=== PATIENT | female | born 1985 | race Caucasian/White ===

== ENCOUNTER 2017-03-30 16:32 | Outpatient (CLI) | payer OTHER ==
[~2017-03-30] VITALS: Ht 162.6 cm; Wt 59.5 kg
[2017-03-30 17:12] VITALS: BP 111/64; PULSE 82; RESP 19; Ht 162.6 cm; Wt 59.5 kg
[2017-03-30] MEDS ORDERED: PRENAT PO (17:13)
--- NOTE | 2017-03-30 17:34 | RADRPT ---
PROCEDURE: OB ultrasound for biophysical profile CLINICAL INDICATION: Leaking fluid TECHNIQUE: Multiple sonographic images of the pelvis were obtained. Transabdominal views of the g ravid uterus are available for review. The images were reviewed on a PACS workstation. COMPARISON: None FINDINGS: breathing movement = 2/2 tone = 2/2 motion = 2/2 LOREE = 2/2 LOREE = 12.0 cm Single live intrauterine with cardiac activity of 150 bpm. position is cephal ic. The placenta is right lateral. IMPRESSION: 1. Single live intrauterine gestation. 2. Biophysical profile = 8/8. 3. LOREE = 12.0 cm. RPTAT: HH .Deborah Suarez MD, MD Date Time Electronically viewed and signed by .Deborah Suarez MD, on 03/30/2017 17:33 .G/
--- NOTE | 2017-03-30 18:52 | TRIAGE ---
OB Triage Datetime Report Generated by CPN: 03/30/2017 18:52 Datetime: 03/30/2017 18:33 Stage of : OB Triage Maternal Assessment Level of Consciousness: Fully Conscious DTR's/Clonus: DTRs 1+ Headache: Denies Breath Sounds, Left: Clear and Equal Breath Sounds, Right: Clear and Equal RUQ Epigastric Pain: Denies Labor Evaluation Frequency: NONE Monitor Mode: External Resting Tone Olivia Lopez De Gutierrez: Relaxed Heart Rate FHR Baseline Rate: 135 Monitor Mode: External US Variability: Moderate 6-25 bpm Accelerations: 15X15 Decelerations: None Category: Category I Pain Assessment Pain Presence: None/Denies Pain Type: N/A Datetime: 03/30/2017 18:00 Stage of : OB Triage Maternal Assessment Level of Consciousness: Fully Conscious DTR's/Clonus: DTRs 1+ Headache: Denies Breath Sounds, Left: Clear and Equal Breath Sounds, Right: Clear and Equal RUQ Epigastric Pain: Denies Labor Evaluation Frequency: IRREGULAR Monitor Mode: External Duration (sec)2399: 40-60 Quality: Mild Resting Tone Olivia Lopez De Gutierrez: Relaxed Heart Rate FHR Baseline Rate: 135 Monitor Mode: External US Variability: Moderate 6-25 bpm Accelerations: 15X15 Decelerations: None Category: Category I Pain Assessment Pain Presence: None/Denies Pain Type: N/A Datetime: 03/30/2017 17:23 Maternal Assessment Level of Consciousness: Fully Conscious DTR's/Clonus: DTRs 1+ Headache: Denies Blurred Vision: No Breath Sounds, Left: Clear and Equal Breath Sounds, Right: Clear and Equal RUQ Epigastric Pain: Denies Facial Edema: None Labor Evaluation Frequency: NONE Monitor Mode: External Resting Tone Olivia Lopez De Gutierrez: Relaxed Heart Rate FHR Baseline Rate: 140 Monitor Mode: External US Variability: Moderate 6-25 bpm Accelerations: 15X15 Decelerations: None Category: Category I Pain Assessment Pain Presence: None/Denies Pain Type: N/A Datetime: 03/30/2017 17:16 EGA: 36.5 Datetime: 03/30/2017 16:45 Stage of : OB Triage Datetime: 03/30/2017 16:23 Time of Arrival: 03/30/2017 16:23 Arrived By: Ambulatory Arrived From: Home Chief Complaint: PT CAME IN C/O LEAKING FOR 2 WEEKS AND STATED THAT SHA HAS SEEING A QUAUTER SIZE OF FLUID IN HER UNDERWARE. DENIES ANY OTHER PROBLEM Movement: Present Contractions: Denies/Absent Rupture of Membranes: Denies Vaginal Bleeding: None Vaginal Discharge: Present Recent Sexual Intercouse: Denies Abdominal Trauma: Not Applicable Patient Complaints: Other Additional Patient Complaints: NONE Time Provider Notified: 03/30/2017 17:30 Provider Notified: BETSEY Initial Plan: ROM PLUS, BPP, LOREE, VE
--- NOTE | 2017-04-09 22:50 | QN ---
Documentation Comment R/o prom JOE LEGGETT MD April 09, 2017 22:50
== END 2017-03-30 18:40 | disposition home or self-care (01) ==
LOC: OBT 16:32 → L-D 16:33 → OBT 18:40
PROVIDERS: ATTEND Obstetrics & Gynecology
DX: O26.893 Other specified pregnancy related conditions, third trimester (principal); Z3A.36 36 weeks gestation of pregnancy
CPT/HCPCS: 76818; 84112; Z7500; G0463

== ENCOUNTER 2017-04-05 04:55 | Inpatient (IN) | payer OTHER ==
[~2017-04-05] VITALS: Ht 162.6 cm; Wt 60.1 kg
[~2017-04-05 04:55] MED LIST: PRENAT PO
[2017-04-05 05:02] VITALS: BP 114/73; PULSE 61; RESP 20
[2017-04-05] MEDS ORDERED: FERR134T PO (05:15)
[2017-04-05] MEDS ORDERED: TERBUTALINE 1 ML ONE (05:44)
[2017-04-05] MEDS: LACTATED RINGER'S 1,000 ML IV SCH ×3 (05:47→22:10)
--- NOTE | 2017-04-05 05:55 | TRIAGE ---
OB Triage Datetime Report Generated by CPN: 04/05/2017 05:54 Datetime: 04/05/2017 05:53 Assessment Type: Admission Assessment Pain Assessment Pain Scale: 10 Pain Presence: Intermittent Pain Type: Contraction Datetime: 04/05/2017 05:30 Stage of : OB Triage Datetime: 04/05/2017 05:29 Stage of : OB Triage Labor Evaluation Frequency: 4-5 Monitor Mode: External Duration (sec)2399: 60-90 Quality: Moderate Pattern: Normal: <= 5 Contractions in 10 Minutes Resting Tone Singac: Relaxed Heart Rate FHR Baseline Rate: 140 Monitor Mode: External US FHR Baseline Changes: No Baseline Change Variability: Moderate 6-25 bpm Accelerations: 15X15 Decelerations: Late Category: Category II Pain Assessment Pain Scale: 10 Pain Presence: Intermittent Pain Type: Contraction Pain Location: Abdomen Vaginal Exam Dilatation (cms): 1.0 Effacement (%): 90 Station: -2 Exam By: ELopez Membrane Status: Intact Amniotic Fluid Amount: None Vaginal Bleeding: Small Cervix, Consistency: Soft Cervix, Position: Midposition Presentation 'A': Cephalic Datetime: 04/05/2017 05:08 Stage of : OB Triage Maternal Assessment Level of Consciousness: Fully Conscious Headache: Denies Blurred Vision: No Nausea/Vomiting: Denies RUQ Epigastric Pain: Denies Facial Edema: None Labor Evaluation Frequency: placed Monitor Mode: External Resting Tone Singac: Relaxed Monitor Mode: External US Comments: FHT 145 Pain Assessment Pain Scale: 10 Pain Presence: Intermittent Pain Type: Contraction Pain Location: Abdomen Datetime: 04/05/2017 04:59 Time of Arrival: 04/05/2017 04:53 EGA: 37.4 Arrived By: Wheelchair Arrived From: Home Chief Complaint: [id number] w/ hx c/s x2 c/o ucs Movement: Present Contractions: Regular Time Contractions Began: 04/04/2017 16:00 Contractions: Q5 Rupture of Membranes: Denies Vaginal Bleeding: None Vaginal Discharge: Denies Recent Sexual Intercouse: Denies Abdominal Trauma: Not Applicable Patient Complaints: Contractions Initial Plan: EFM, SVE Datetime: 03/30/2017 17:16 EGA: 36.5
[2017-04-05] MEDS ORDERED: METHYLERGONOVINE 0.2 MG INJ IM PRN ×2 (06:00→13:00)
[2017-04-05] MEDS ORDERED: OXYTOCIN 30 UNITS/LR 500 ML IV PRN ×2 (06:00→13:00)
[2017-04-05] MEDS ORDERED: CARBOPROST 250 MCG INJ IM PRN ×2 (06:00→13:00)
[2017-04-05] MEDS ORDERED: MISOPROSTOL 200 MCG TAB PR PRN ×2 (06:00→13:00)
[2017-04-05] MEDS ORDERED: OXYTOCIN 30 UNITS/LR 500 ML IV SCH (06:00)
[2017-04-05] MEDS ORDERED: TERBUTALINE 1 MG/ML INJ SC ONE ×2 (06:00→06:30)
[2017-04-05] MEDS ORDERED: CEFAZOLIN 2 GM/50 ML (PMX) 50 ML IV SCH (06:00)
[2017-04-05 06:09] LABS: ADD SCAN DIFF NO
[2017-04-05 06:13] LABS: BASOPHILS % 0.2 % (0.0-2.0); EOSINOPHILS # 0.1 10^3/ul (0.0-0.5); EOSINOPHILS % 0.6 % (0.0-7.0); HEMATOCRIT 35.4 % (37.0-47.0); HEMOGLOBIN 11.9 g/dl (12.0-16.0); LYMPHOCYTES # 2.9 10^3/ul (0.8-2.9); LYMPHOCYTES % 27.1 % (15.0-51.0); MEAN CORPUSCULAR HEMOGLOBIN 30.7 pg (29.0-33.0); MEAN CORPUSCULAR HGB CONC 33.6 g/dl (32.0-37.0); MEAN CORPUSCULAR VOLUME 91.5 fl (82.0-101.0); MEAN PLATELET VOLUME 12.9 fl (7.4-10.4); MONOCYTE # 0.5 10^3/ul (0.3-0.9); MONOCYTES % 4.7 % (0.0-11.0); NEUTROPHIL # 7.1 10^3/ul (1.6-7.5); NEUTROPHILS % 66.9 % (39.0-77.0); PLATELET COUNT 158 10^3/UL (140-415); RED BLOOD COUNT 3.87 10^6/ul (4.20-5.40); RED CELL DISTRIBUTION WIDTH 14.2 % (11.5-14.5); WHITE BLOOD COUNT 10.7 10^3/ul (4.8-10.8)
[2017-04-05 06:31] LABS: INR 0.82; PROTIME 11.3 Sec (12.2-14.2); PT RATIO 0.9
[2017-04-05 06:32] LABS: PARTIAL THROMBOPLASTIN TIME 30.5 Sec (25.0-35.0)
--- NOTE | 2017-04-05 06:48 | HP ---
Date/Time of Note Date/Time of Note DATE: 04/05/17 TIME: 06:42 OB - History Hx of Present Free Text/Dictation Pt is a 31yo at 37+4 with 2 prior C/S presenting with painful UCs. Pt reports normal FM, denies LOF or VB. care has been uncomplicated. Pt desires BTL at time of repeat C/S. Estimated Due Date: April 22, 2017 : 3 Para: 2 Care: Good Care Ultrasounds: Normal mid trimester US Obstetrical Complications: None Medical Complications: Other (Anemia, now resolved) Past Family/Social History * Past Medical, Surgical, Family and Obstetric Histories reviewed from chart. Blood Type: O+ Rubella: immune RPR/VDRL: Negative GBS Status: Unknown HBsAG: Negative OB Admission Exam Vital Signs Vital Signs Vital Signs Date Time Temp Pulse Resp B/P Pulse Ox O2 Delivery O2 Flow Rate FiO2 04/05/17 05:02 98.2 61 20 114/73 Room Air Physical Exam HEENT: WNL Heart: Rhythm Normal Lungs: Clear Abdomen: WNL Extremities: Normal Cervical Dilatation: 1cm Effacement: Other (90%) Station: -3 Membranes: Intact Heart Rate: 130's Accelerations: Accelerations Present Decelerations: No Decelerations Varibility: Moderate Contractions on Admission: < 5 Minutes Apart (initially q3-4 min) Last 72 hours Lab Results CBC & BMP 04/05/17 05:55 OB Assessment/Plan Other Assessment: Early Labor Hx of C/S x2 Reactive NST Other plan: Plan to proceed with repeat C/S in the setting of early labor at term. Pt desires repeat C/S. The risks of C/S discussed include but are not limited to pain, infection, damage to nearby organs, structures or injury to baby, bleeding possibly requiring transfusion of blood products or hysterectomy. Pt made aware that should injury to organs or structures be noted during the procedure, they will be repaired. However, there is a possibility that injuries may be sustained at the time of the C/S and go unrecognized. Thus additional surgeries may be necessary to repair damage during the C/S. The pt had an opportunity to have her questions answered. Written consent for Repeat C/S and transfusion of blood products were signed. Pt consented for tubal ligation and is aware of risks of this procedure as well. RN and Anesthesia teams made aware of plan. TERRY CHEN MD April 05, 2017 06:48
[2017-04-05] MEDS ORDERED: OXYTOCIN 30 UNITS/LR 500 ML BAG IV ONE (07:00)
[2017-04-05] MEDS ORDERED: PHENYLephrine (100 MCG/ML) 5ML SYG ONE ×2 (08:12→08:52)
[2017-04-05] MEDS ORDERED: ONDANSETRON 4 MG INJ ONE (08:12)
[2017-04-05] MEDS ORDERED: OXYTOCIN 10 UNIT INJ ONE (08:12)
[2017-04-05] MEDS ORDERED: morphine SULFATE/PF (10 MG/10 ML) INJ ONE (08:12)
--- NOTE | 2017-04-05 08:18 | HP ---
Date/Time of Note Date/Time of Note DATE: 04/05/17 TIME: 08:10 OB - History Hx of Present Free Text/Dictation 31 years old female 02 0 2 admitted to [facility] at 37 weeks and 4 days with a history of 2 previous section in active labor patient was originally scheduled for the 39 weeks but came to the hospital due to labor contraction being prepared to undergo repeat C- section patient had requested and signed the consent for tubal ligation at the time of her section. This patient has been under the care of the [facility] course was not complicated with gestational diabetes -induced hypertension only notable entry in her record is anemia. Chief Complaint: Previous in labor Estimated Due Date: April 22, 2017 : 5 Para: 2 Spontaneous : 2 Care: Good Care Ultrasounds: Normal mid trimester US Obstetrical Complications: None Past Family/Social History * Past Medical, Surgical, Family and Obstetric Histories reviewed from chart. Rubella: immune RPR/VDRL: Negative GBS Status: Negative OB Admission Exam Vital Signs Vital Signs Vital Signs Date Time Temp Pulse Resp B/P Pulse Ox O2 Delivery O2 Flow Rate FiO2 04/05/17 05:02 98.2 61 20 114/73 Room Air Physical Exam HEENT: WNL Heart: Rhythm Normal Lungs: Clear, Equal Abdomen: WNL Extremities: Normal Reflexes: Normal Cervical Dilatation: 1cm Effacement: 25% Station: -2 Membranes: Intact Heart Rate: 130's Accelerations: Accelerations Present Decelerations: No Decelerations Varibility: Moderate Contractions on Admission: < 5 Minutes Apart Intensity: Moderate Last 72 hours Lab Results CBC & BMP 04/05/17 05:55 OB Assessment/Plan Plan: Section, Other (History of 2 previous section in labor had signed consent and requested bilateral tubal ligation at the time of section) Other plan: Repeat bilateral tubal ligation JOE LEGGETT MD April 05, 2017 08:18
[2017-04-05] MEDS ORDERED: FENTAnyl 50 MCG/ML VIAL ONE (08:51)
[2017-04-05] MEDS ORDERED: morphine 2 MG INJ IV PRN (10:00)
[2017-04-05] MEDS ORDERED: NALOXONE (0.4 MG/ML) INJ IV PRN (10:00)
[2017-04-05] MEDS ORDERED: DIPHENHYDRAMINE 50 MG INJ IV PRN (10:00)
[2017-04-05] MEDS ORDERED: ONDANSETRON 4 MG INJ IV PRN (10:00)
--- NOTE | 2017-04-05 10:39 | OPR ---
DATE OF OPERATION: 04/05/2017 PREOPERATIVE DIAGNOSES: 1. Intrauterine at 37 weeks and 4 days with history of 2 previous sections, in a ctive labor. 2. Request for bilateral tubal ligation at the time of section. POSTOPERATIVE DIAGNOSES: 1. Intrauterine at 37 weeks and 4 days with history of 2 previous sections, in a ctive labor. 2. Request for bilateral tubal ligation at the time of section. OPERATION PERFORMED: Repeat transverse low cervical section, bilateral tubal ligation. SURGEON: Joe Grijalva MD TUG HAND: Brian Feliz MD ANESTHESIA: Spinal. ANESTHESIOLOGIST: Dr. Alexandre FINDINGS: Live baby boy with the 9 and 9. Baby weighed 6 pounds 5 ounces. DETAILS OF THE PROCEDURE: Under satisfactory spinal anesthesia, the patient was prepped and draped and placed in supine position, tilted to the left. Pfannenstiel incision was made, incision carried through the subcutaneous tissue. Bleeders brought under control with electrocautery. Fascia incis ed to the length of the incision. Rectus muscle divided in midline. Peritoneum exposed, entered th rough a transverse incision. Exploration of abdomen: Gravid uterus, extremely thinned out lower seg ment of the uterus, normal appearing tubes and ovaries. Bladder flap was developed. Transverse inc ision was made in the lower segment of the uterus. Amniotic sac ruptured. Clear amniotic fluid not ed. Live baby boy was delivered from unengaged vertex with a nuchal cord x1. Nasal oropharyngeal s uction was performed and baby handed to the team for immediate attention. The patient rece ived 20 units of Pitocin. Placenta delivered manually intact. Uterine cavity cleaned with wet spon ge and drainage established. Uterus closed in 2 layers using Monocryl #1 in continuous fashion. Pe ritoneal cavity irrigated with warm saline. Sponge, needle, and instrument reported to be correct. Bilateral tubal ligation performed by identifying the ampullar and fimbria section of the right fall opian tube. Suture material used: #0 plain catgut, reinforced with the same suture material. The f imbria and part of the ampullar section of the tube was excised. The cut end of the tube was cauter ized and the specimen submitted to pathology. The same procedure performed for the opposite side. A second sponge, needle, and instrument reported to be correct. Abdominal peritoneum closed with 2- 0 chromic catgut continuously. Rectus muscle approximated with few interrupted 2-0 chromic catgut. Fascia closed with #1 PDS in a continuous fashion. Subcutaneous tissue approximated with interrupt ed 2-0 chromic catgut and the skin closed with juanita. Estimated blood loss 600 mL. Urine bag con tained 200 mL of clear urine. Patient tolerated procedure well and was transferred to recovery room in a good condition. Dictated By: JOE BOWLES/IGOR Conf#: [id number] DID#: [id number]
[2017-04-05] MEDS: KETOROLAC 30 MG INJ IV PRN (11:23)
[2017-04-05 12:30] VITALS: BP 112/62; PULSE 64; RESP 18
[2017-04-05] MEDS ORDERED: LANOLIN 7 GM TUBE TOP PRN (13:00)
[2017-04-05] MEDS ORDERED: OXYCODONE/ACETAMINOPHEN (5/325) TAB PO PRN ×2 (13:00)
[2017-04-05] MEDS ORDERED: CEFAZOLIN 1 GM/50 ML (PMX) 50 ML IVPB SCH (13:00)
[2017-04-05] MEDS ORDERED: ACETAMINOPHEN/CODEINE #3 TAB PO PRN ×2 (13:00)
[2017-04-05] MEDS: OXYTOCIN 30 UNITS/LR 500 ML IV SCH ×3 (13:32→20:32)
[2017-04-05 16:08] VITALS: PULSE 62; RESP 18
[2017-04-05 20:00] VITALS: BP 124/64; PULSE 60; RESP 18
[2017-04-05] MEDS: SENNA/DOCUSATE NA (8.6MG/50MG) TAB PO SCH (21:00)
[2017-04-05 23:30] VITALS: BP 107/64; PULSE 65; RESP 18
[2017-04-06 03:58] VITALS: BP 108/67; PULSE 67; RESP 18
[2017-04-06] MEDS: LACTATED RINGER'S 1,000 ML IV SCH (05:30)
[2017-04-06 08:15] VITALS: BP 103/57; PULSE 69; RESP 19
[2017-04-06 08:19] LABS: ADD SCAN DIFF NO
[2017-04-06 08:26] LABS: BASOPHILS % 0.1 % (0.0-2.0); EOSINOPHILS % 0.2 % (0.0-7.0); HEMOGLOBIN 9.1 g/dl (12.0-16.0); LYMPHOCYTES # 1.8 10^3/ul (0.8-2.9); LYMPHOCYTES % 19.7 % (15.0-51.0); MEAN CORPUSCULAR HEMOGLOBIN 29.9 pg (29.0-33.0); MEAN CORPUSCULAR HGB CONC 32.5 g/dl (32.0-37.0); MEAN CORPUSCULAR VOLUME 92.1 fl (82.0-101.0); MEAN PLATELET VOLUME 12.7 fl (7.4-10.4); MONOCYTE # 0.5 10^3/ul (0.3-0.9); MONOCYTES % 5.7 % (0.0-11.0); NEUTROPHIL # 6.8 10^3/ul (1.6-7.5); PLATELET COUNT 125 10^3/UL (140-415); RED BLOOD COUNT 3.04 10^6/ul (4.20-5.40); RED CELL DISTRIBUTION WIDTH 14.6 % (11.5-14.5); WHITE BLOOD COUNT 9.2 10^3/ul (4.8-10.8)
[2017-04-06] MEDS: KETOROLAC 30 MG INJ IV PRN (08:29)
[2017-04-06] MEDS: SENNA/DOCUSATE NA (8.6MG/50MG) TAB PO SCH ×2 (08:29→21:03)
[2017-04-06] MEDS: IBUPROFEN 600 MG TAB PO SCH ×3 (12:00→23:33)
[2017-04-06 15:30] VITALS: BP 102/63; PULSE 92; RESP 18
--- NOTE | 2017-04-06 16:44 | PN ---
Date/Time of Note Date/Time of Note DATE: 04/06/17 TIME: 16:43 OB Subjective Subjective Subjective Post day Afebrile, VSs stable abdomen soft lochia moderate bowel sounds present able to pass flatus ambulation recommended extremities normal. Laboratory Tests Test 04/06/17 07:36 White Blood Count 9.210^3/ul Red Blood Count 3.0410^6/ul Hemoglobin 9.1g/dl Hematocrit 28.0% Mean Corpuscular Volume 92.1fl Mean Corpuscular Hemoglobin 29.9pg Mean Corpuscular Hemoglobin Concent 32.5g/dl Red Cell Distribution Width 14.6% Platelet Count 65982^3/UL Mean Platelet Volume 12.7fl Neutrophils % 74.0% Lymphocytes % 19.7% Monocytes % 5.7% Eosinophils % 0.2% Basophils % 0.1% Nucleated Red Blood Cells % 0.0/100WBC Neutrophils # 6.810^3/ul Lymphocytes # 1.810^3/ul Monocytes # 0.510^3/ul Eosinophils # 0.010^3/ul Basophils # 0.010^3/ul Nucleated Red Blood Cells # 0.010^3/ul Current Medications Medications (Trade) Dose Ordered Sig/Angel Route PRN Reason Start Time Stop Time Status Last Admin Dose Admin Lactated Ringer's 1,000 ml @ 125 mls/hr Q8H IV 04/05/17 05:33 04/05/17 12:36 DC 04/05/17 06:48 Cefazolin Sodium/ Dextrose 50 ml @ 100 mls/hr ONCE IV 04/05/17 06:00 04/05/17 12:36 DC Oxytocin/Lactated Ringer's 500 ml @ 125 mls/hr ONCE IV 04/05/17 06:00 04/05/17 12:36 DC 04/05/17 10:09 Oxytocin/Lactated Ringer's 500 ml @ 0 mls/hr ONCE PRN IV For Hemorrhage Management 04/05/17 06:00 04/05/17 12:36 DC Methylergonovine Maleate (Methergine) 0.2 mg ONCE PRN IM VAGINAL BLEEDING 04/05/17 06:00 04/05/17 12:36 DC Carboprost Tromethamine (Hemabate) 250 mcg ONCE PRN IM VAGINAL BLEEDING 04/05/17 06:00 04/05/17 12:36 DC Misoprostol (Cytotec) 1,000 mcg ONCE PRN GA VAGINAL BLEEDING 04/05/17 06:00 04/05/17 12:36 DC Terbutaline Sulfate 0.25 mg 0.25 mg ONCE ONCE SC 04/05/17 06:00 04/05/17 06:01 DC 04/05/17 05:46 Terbutaline Sulfate (Brethine) 1 ml @ ud STK-MED ONCE .ROUTE 04/05/17 05:44 04/05/17 05:45 DC Terbutaline Sulfate (Brethine) 0.25 mg ONCE ONCE SC 04/05/17 06:30 04/05/17 06:31 DC 04/05/17 06:32 Morphine Sulfate (Duramorph) 10 mg STK-MED ONCE .ROUTE 04/05/17 08:12 04/05/17 08:13 DC Ondansetron HCl (Zofran Inj) 4 mg STK-MED ONCE .ROUTE 04/05/17 08:12 04/05/17 08:13 DC Phenylephrine HCl (Cuong-Synephrine Inj Syg) 500 mcg STK-MED ONCE .ROUTE 04/05/17 08:12 04/05/17 08:13 DC Oxytocin (Oxytocin) 10 units STK-MED ONCE .ROUTE 04/05/17 08:12 04/05/17 08:13 DC Fentanyl (Sublimaze) 100 mcg STK-MED ONCE .ROUTE 04/05/17 08:51 04/05/17 08:52 DC Phenylephrine HCl (Cuong-Synephrine Inj Syg) 500 mcg STK-MED ONCE .ROUTE 04/05/17 08:52 04/05/17 08:53 DC Naloxone HCl (Narcan) 0.1 mg Q2M PRN IV FOR RESP RATE 8 OR LESS 04/05/17 10:00 04/06/17 08:00 DC Ketorolac Tromethamine (Toradol) 30 mg Q6H PRN IV PAIN 04/05/17 10:00 04/06/17 09:00 DC 04/06/17 08:29 Morphine Sulfate (morphine) 2 mg Q3H PRN IV PAIN LEVEL 1-5 04/05/17 10:00 04/06/17 08:00 DC Diphenhydramine HCl (Benadryl) 25 mg Q6H PRN IV ITCHING 04/05/17 10:00 04/06/17 08:00 DC 04/05/17 23:20 Ondansetron HCl (Zofran Inj) 4 mg Q6H PRN IV NAUSEA AND/OR VOMITING 04/05/17 10:00 04/06/17 08:00 DC Miscellaneous Information (* Miscellaneous Pharmacy Order) Duramorph: 0.2 mg Spi... GIVEN XX 04/05/17 10:00 Acetaminophen/ Codeine Phosphate (Tylenol No.3) 1 tab Q4H PRN PO PAIN LEVEL 4-6 04/05/17 13:00 Acetaminophen/ Codeine Phosphate (Tylenol No.3) 2 tab Q4H PRN PO PAIN LEVEL 7-10 04/05/17 13:00 Oxycodone/ Acetaminophen (Percocet (5/ 325)) 1 tab Q4H PRN PO PAIN LEVEL 4-6 04/05/17 13:00 Oxycodone/ Acetaminophen (Percocet (5/ 325)) 2 tab Q4H PRN PO PAIN LEVEL 7-10 04/05/17 13:00 Ibuprofen (Motrin) 600 mg Q6 PO 04/06/17 12:00 Simethicone (Mylicon) 160 mg Q8H PRN PO DISTENSION/GAS/BLOATING 04/05/17 13:00 04/06/17 08:29 Senna/Docusate Sodium (Senokot-S) 1 tab BID PO 04/05/17 21:00 04/06/17 08:29 Lanolin ([id number]-J-Zjcwxa) 1 applic BEDSIDE MEDICATION PRN TOP BEDSIDE FOR HELLEN TO NIPPLES 04/05/17 13:00 04/05/17 23:20 Diphtheria/ Tetanus/Acell Pertussis 0.5 ml 0.5 ml ONCE ONCE IM* 04/08/17 09:00 04/08/17 09:01 Oxytocin/Lactated Ringer's 500 ml @ 0 mls/hr ONCE PRN IV For Hemorrhage Management 04/05/17 13:00 Methylergonovine Maleate (Methergine) 0.2 mg ONCE PRN IM VAGINAL BLEEDING 04/05/17 13:00 Carboprost Tromethamine (Hemabate) 250 mcg ONCE PRN IM VAGINAL BLEEDING 04/05/17 13:00 Misoprostol 1000 mcg 1,000 mcg ONCE PRN GA VAGINAL BLEEDING 04/05/17 13:00 Cefazolin Sodium 50 ml @ 100 mls/hr ONCE IVPB 04/05/17 13:00 04/05/17 13:29 DC 04/05/17 13:33 Oxytocin/Lactated Ringer's 500 ml @ 125 mls/hr Q4H IV 04/05/17 12:32 04/05/17 22:13 DC 04/05/17 18:12 Lactated Ringer's (Lr) 1,000 ml @ 125 mls/hr Q8H IV 04/05/17 22:00 04/06/17 09:00 DC 04/06/17 05:30 JOE LEGGETT MD April 06, 2017 16:44
[2017-04-06 20:00] VITALS: BP 100/80; PULSE 100; RESP 18
[2017-04-07 04:00] VITALS: BP 103/55; PULSE 68; RESP 18
[2017-04-07] MEDS: IBUPROFEN 600 MG TAB PO SCH ×5 (06:05→23:54)
[2017-04-07 08:00] VITALS: BP 92/62; PULSE 74; RESP 18
[2017-04-07] MEDS: SENNA/DOCUSATE NA (8.6MG/50MG) TAB PO SCH ×2 (08:28→21:58)
--- NOTE | 2017-04-07 09:47 | PN ---
Date/Time of Note Date/Time of Note DATE: 04/07/17 TIME: 09:46 OB Subjective Subjective Subjective Post day 2 Afebrile VS stable abdomen soft incision good bowel sounds able to pass flatus no BM ambulation encouraged JOE LEGGETT MD April 07, 2017 09:47
[2017-04-07] MEDS ORDERED: NA PHOSPHATE/BIPHOS 133 ML ENEMA PR ONE (10:00)
[2017-04-07 16:20] VITALS: BP 106/75; PULSE 82; RESP 17
[2017-04-07 20:00] VITALS: BP 90/63; PULSE 77; RESP 19
[2017-04-08 03:50] VITALS: BP 107/61; PULSE 63; RESP 17
[2017-04-08] MEDS: IBUPROFEN 600 MG TAB PO SCH ×2 (05:35→12:05)
[2017-04-08 08:40] VITALS: BP 110/66; PULSE 65; RESP 18
[2017-04-08] MEDS ORDERED: DIPHTH/TET/ACEL PERTUSS (ADULT) 0.5 ML VIAL IM* ONE (09:00)
[2017-04-08] MEDS: SENNA/DOCUSATE NA (8.6MG/50MG) TAB PO SCH (10:04)
--- NOTE | 2017-04-08 10:20 | PD.PPDC ---
SECURITY SITE SUPERVISOR Discharge Instruction Condition Patient Condition: Good Diet Diet: Resume Regular Diet Activity/Restrictions Activity: Normal Activity May Shower Wound/Drain Care Instructions Wound/Drain Care Instructions: Remove Steri Strips in 1 week Follow-up Follow-up with Physician: 4, Day/Days Provider Information: Appointment clinic in 5 days to discontinue juanita Return to clinic for DIRECTOR OCCUPATIONAL Instructions: Fever greater than 101 Worsening abdominal pain Excessive Vaginal Bleeding More than 2 pads per hour Unable to tolerate diet Surgical Instructions: Incisional Drainage Incisional Redness JOE LEGGETT MD April 08, 2017 10:20
--- NOTE | 2017-04-08 10:23 | DS ---
Date/Time of Note Date/Time of Note DATE: 04/08/17 TIME: 10:21 Discharge Summary Admission/Discharge Info Admit Date/Time April 05, 2017 at 05:35 Discharge Date/Time April 08 at 1028 Final Diagnosis Post Patient Condition: Good Procedures Repeat bilateral tubal ligation Hx of Present Illness history of previous request for BTL Hospital Course Satisfactory uneventful Home Meds Reported Medications Ferrous Sulfate (Iron) 134 Mg Tablet, 134 MG PO DAILY, TAB 04/05/17 Discontinued Reported Medications Multivit/Min/Fol Ac/Iron/Pren* ( S*) 1 Tab Tab, 1 TAB PO DAILY, TAB 03/30/17 Primary Care Provider Jacinta Tom Time spent on discharge: > 30 minutes JOE LEGGETT MD April 08, 2017 10:23
== END 2017-04-08 17:42 | disposition home or self-care (01) | DRG 766 ==
LOC: OBT 04:55 → L-D 04:56 → OBT 05:34 → L-D 05:35 → PP1 12:23
PROVIDERS: ADMIT Obstetrics & Gynecology; ATTEND Obstetrics & Gynecology
PROC: 0UL70ZZ Occlusion of Bilateral Fallopian Tubes, Open Approach (ICD-10-PCS; 2017-04-05)
PROC: 10D00Z1 Extraction of Products of Conception, Low, Open Approach (ICD-10-PCS; principal; 2017-04-05 08:00)
DX: O34.211 Maternal care for low transverse scar from previous cesarean delivery (principal); O69.81X0 Labor and delivery complicated by cord around neck, without compression, not applicable or unspecified; Z3A.37 37 weeks gestation of pregnancy; Z30.2 Encounter for sterilization; Z37.0 Single live birth
CPT/HCPCS: 85025; 85610; 85730; 86592; 86850; 86900; 86901; 88302; 88307; 90715; 94760; 96372; 99464; G0463; J0690; J1200; J1885; J2274; J2370; J2405; J2590; J3010; J3105; J7120

== ENCOUNTER 2017-12-07 09:40 | Emergency (ER) | END 2017-12-07 12:43 | disposition home or self-care (01) ==

== ENCOUNTER 2019-03-17 13:08 | Emergency (ER) | payer MEDICAID, OTHER ==
[~2019-03-17] VITALS: Wt 52.3 kg
[~2019-03-17 13:08] MED LIST changes: +FERR134T PO; +NITR-58 PO; +PHEN-538 PO; -PRENAT PO
[2019-03-17 13:44] VITALS: BP 113/56; PULSE 61; RESP 20
--- NOTE | 2019-03-17 17:40 | ERD ---
ER Documentation Chief Complaint Chief Complaint c/o headache with weakness today. Currently asymptomatic HPI 33-year-old female patient with no significant past medical history presents to ED complaining of headache and felt weak earlier today. States that she felt like she was about to faint. Reports that she felt nauseous but denies any vomiting. States that she was at the coffee shop, sat on the sofa and felt weak. He says she may have a history of anemia. Reports that she is currently on her menstruation. Denies any chest pain, shortness of breath, nausea, vomiting, diarrhea, neck stiffness. ROS All systems reviewed and are negative except as per history of present illness. Medications Home Meds Active Scripts Phenazopyridine Hcl* (Pyridium*) 200 Mg Tab, 200 MG PO TID PRN for URINARY PAIN, #10 TAB Prov:PRATIBHA BENSON PA-C 12/07/17 Nitrofurantoin Monohyd Macrocr* (Macrobid*) 100 Mg Capsr, 100 MG PO BID for 7 Days, CAP Prov:PRATIBHA BENSON PA-C 12/07/17 Reported Medications Ferrous Sulfate (Iron) 134 Mg Tablet, 134 MG PO DAILY, TAB 04/05/17 Allergies Allergies: Coded Allergies: No Known Allergies (Verified Allergy, Unknown, 04/05/17) PMhx/Soc Medical and Surgical Hx: pt denies Medical Hx, pt denies Surgical Hx Hx Alcohol Use: No Hx Substance Use: No FmHx Family History: No diabetes, No coronary disease Physical Exam Vitals Vital Signs Date Temp Pulse Resp B/P (MAP) Pulse Ox O2 O2 Flow FiO2 Time Delivery Rate 03/17/19 98.5 61 20 113/56 99 13:44 (75) Physical Exam Const: Sgr-twk-abydoumvs, well-nourished. In no acute distress. Head: Atraumatic, normocephalic. No hematoma. No shook sign. Eyes: Normal Conjunctiva without injection. No purulent discharge. PERRLA. EOMI ENT: Normal external ear. Ear canal without erythema. Tympanic membrane pearly nair without effusion or bulging. Nasal canal clear with normal turbinates. Moist oropharynx without tonsillar exudates. Non-erythematous pharynx. Uvula midline. No drooling. No trismus. Neck: No cervical midline tenderness. Full range of motion. No meningismus. No cervical lymphadenopathy. No JVD. Resp: Clear to auscultation bilaterally. No wheezing, rhonchi, rales, or cr ackles. No accessory muscle use. No retractions. Cardio: Regular rate and rhythm. No murmurs, rubs or gallops. Abd: Soft, non tender, non distended. Normal bowel sounds. No palpable masses. No rebound tenderness. No guarding. Negative McBurney's Point. Negative Gonzalez's Sign. Skin: Normal skin turgor. No petechiae or rashes Back: No midline tenderness. No CVA tenderness. Ext: No cyanosis, or edema. Distal pulses intact bilaterally. Neur: Awake and alert. Normal gait. Normal coordination. Cranial Nerves II- VII intact. Normal finger to nose. Muscle strength 5/5. Sensation intact. Psych: Normal Mood and Affect Results 24 hrs Laboratory Tests Test 03/17/19 15:52 03/17/19 15:55 POC Beta HCG, Qualitative NEGATIVE White Blood Count 14.3 10^3/ul Red Blood Count 4.44 10^6/ul Hemoglobin 13.3 g/dl Hematocrit 40.5 % Mean Corpuscular Volume 91.2 fl Mean Corpuscular Hemoglobin 30.0 pg Mean Corpuscular Hemoglobin Concent 32.8 g/dl Red Cell Distribution Width 12.7 % Platelet Count 258 10^3/UL Mean Platelet Volume 11.6 fl Immature Granulocytes % 0.400 % Neutrophils % 69.4 % Lymphocytes % 23.9 % Monocytes % 4.5 % Eosinophils % 1.5 % Basophils % 0.3 % Nucleated Red Blood Cells % 0.0 /100WBC Immature Granulocytes # 0.060 10^3/ul Neutrophils # 9.9 10^3/ul Lymphocytes # 3.4 10^3/ul Monocytes # 0.7 10^3/ul Eosinophils # 0.2 10^3/ul Basophils # 0.0 10^3/ul Nucleated Red Blood Cells # 0.0 10^3/ul Sodium Level 142 mmol/L Potassium Level 4.4 mmol/L Chloride Level 104 mmol/L Carbon Dioxide Level 28 mmol/L Anion Gap 10 Blood Urea Nitrogen 16 mg/dl Creatinine 0.57 mg/dl Est Glomerular Filtrat Rate mL/min > 60 mL/min Glucose Level 86 mg/dl Calcium Level 9.6 mg/dl Procedures/MDM 33-year-old female patient with no significant past medical history presents ED complaining of headache and weakness that started earlier today. Patient is afebrile and nontoxic-appearing. An EKG, CBC, BMP, urine was ordered to further evaluate patient. Urine negative. CBC: No e/o of systemic infection. No e/o anemia. BMP: No e/o severe acidosis, alkalosis, renal failure, diabetic ketoacidosis Urine: No leukocyte esterase, no nitrites, no hematuria. EKG reviewed and interpreted by Dr. Chavez Rate/Rhythm: [71 bpm, Normal Sinus Rhythm] No ectopy, no ST elevations, normal axis. QRS, ST, T-waves: [No changes consistent w/ acute ischemia] Impression: [No evidence of ischemia or arrhythmia] She has leukocytosis of 14.3 likely secondary to stress reaction. Low suspicion for acute myocardial infarction, pneumothorax, pneumonia, cardiac tamponade, Umfdx-Ajzqawpfk-Mjdpi Syndrome, Brugada Syndrome, pulmonary embolism, AAA, aortic dissection, thoracic aortic dissection, endocarditis, myocarditis, pericarditis, cocaine-related ischemia, Boerhaave's syndrome, cardiac dysrhythmias,meningitis, intracranial bleed, seizure, stroke, TIA or other emergent conditions. Diagnosis: Headache, Near syncope Follow up with primary care physician in 1-2 days. Instructed patient to return to the ED sooner for any worsening symptoms. Patient's questions were answered. Patient is hemodynamically stable. Patient understood and agreed with discharge plan. Patient discharged stable. Disclaimer: Inadvertent spelling and grammatical errors are likely due to EHR/dictation software use and do not reflect on the overall quality of patient care. Also, please note that the electronic time recorded on this note does not necessarily reflect the actual time of the patient encounter. Departure Diagnosis: Primary Impression: Headache Headache type: unspecified Headache chronicity pattern: unspecified pattern Intractability: not intractable Qualified Codes: R51 - Headache Additional Impression: Near syncope Condition: Stable Patient Instructions: What Is Syncope?, Self-Care for Headaches, Headache, Unspecified Referrals: COMMUNITY CLINICS YOU HAVE RECEIVED A MEDICAL SCREENING EXAM AND THE RESULTS INDICATE THAT YOU DO NOT HAVE A CONDITION THAT REQUIRES URGENT TREATMENT IN THE EMERGENCY DEPARTMENT. FURTHER EVALUATION AND TREATMENT OF YOUR CONDITION CAN WAIT UNTIL YOU ARE SEEN IN YOUR DOCTORS OFFICE WITHIN THE NEXT 1-2 DAYS. IT IS YOUR RESPONSIBILITY TO MAKE AN APPOINTMENT FOR FOLOW-UP CARE. IF YOU HAVE A PRIMARY DOCTOR --you should call your primary doctor and schedule an appointment IF YOU DO NOT HAVE A PRIMARY DOCTOR YOU CAN CALL OUR PHYSICIAN REFERRAL HOTLINE AT IF YOU CAN NOT AFFORD TO SEE A PHYSICIAN YOU CAN CHOSE FROM THE FOLLOWING [facility] [address] [facility] [facility] [facility] [address] [facility] [facility] [address] [facility] [address] [facility]. [facility] [address] [facility] [facility] [address] [facility]. [facility] YOU HAVE RECEIVED A MEDICAL SCREENING EXAM AND THE RESULTS INDICATE THAT YOU DO NOT HAVE A CONDITION THAT REQUIRES URGENT TREATMENT IN THE EMERGENCY DEPARTMENT. FURTHER EVALUATION AND TREATMENT OF YOUR CONDITION CAN WAIT UNTIL YOU ARE SEEN IN YOUR DOCTORS OFFICE WITHIN THE NEXT 1-2 DAYS. IT IS YOUR RESPONSIBILITY TO MAKE AN APPOINTMENT FOR FOLOW-UP CARE. IF YOU HAVE A PRIMARY DOCTOR --you should call your primary doctor and schedule and appointment IF YOU DO NOT HAVE A PRIMARY DOCTOR YOU CAN CALL OUR PHYSICIAN REFERRAL HOTLINE AT . IF YOU CAN NOT AFFORD TO SEE A PHYSICIAN YOU CAN CHOSE FROM THE FOLLOWING [facility]: [facility] [address] [place] [address] [facility] [address] [place] [address] [facility] [address] [place] [address] [facility] URGENT [facility]SPECIALTIES Additional Instructions: Call your primary care doctor TOMORROW for an appointment during the next 2-3 days.See the doctor sooner or return here if your condition worsens before your appointment time. NARGIS BARROS PA-C Mar 17, 2019 17:39
== END 2019-03-17 17:12 | disposition home or self-care (01) ==
LOC: FTE 13:08
DX: R51 Headache (principal); R55 Syncope and collapse
CPT/HCPCS: 36415; 80048; 81025; 85025; 93005

== ENCOUNTER 2019-07-12 09:22 | Emergency (ER) | payer SELFPAY ==
[~2019-07-12] VITALS: Ht 162.6 cm; Wt 52.5 kg
[~2019-07-12 09:22] MED LIST changes: +MECL12.574 PO
[2019-07-12 09:23] VITALS: Ht 162.6 cm; Wt 52.5 kg
[2019-07-12] MEDS ORDERED: MECLIZINE 12.5 MG TAB PO ONE (10:00)
[2019-07-12] MEDS ORDERED: SOD CHLORIDE 0.9% 1,000 ML IV STA (10:53)
[2019-07-12] MEDS ORDERED: LORAZEPAM 2 MG INJ IV ONE (11:00)
[2019-07-12 12:04] VITALS: BP 104/61; PULSE 83; RESP 21
== END 2019-07-12 12:07 | disposition home or self-care (01) ==
LOC: FTE 09:22
DX: R42 Dizziness and giddiness (principal)
CPT/HCPCS: 80053; 81025; 85025; 93005; 96361; 96374; 99284; J2060; J7030